=== PATIENT | female | born 1995 | race Caucasian/White ===

== ENCOUNTER 2022-04-12 08:56 | Outpatient (CLI) | payer OTHER, SELFPAY ==
--- NOTE | 2022-04-12 09:15 | CRLHL7_ITS ---
For Patients: As a result of the Cures Act, medical imaging exams and procedure reports are released immediately into your electronic medical record. You may view this report before your referring provider. If you have questions, please contact your health care provider. INDICATION: Dating/viability. TECHNIQUE: Ultrasound pelvis transvaginal for better assessment or to better visualize the endometrium. Real-time sonographic images with spectral and color Doppler imaging of the ovaries were obtained. COMPARISON: None. FINDINGS: Baby A [place] rump length measures 2.6 cm corresponding to 9 weeks 3 days. heart rate is 155 beats per minute. Gestational sac and yolk sac are within normal limits. Baby B [place]-rump length measures 2.6 cm corresponding to 9 weeks 3 days. heart rate is 159 beats per minute. Gestational sac and yolk sac within normal limits. Right ovary measures 3.3 x 3.1 x 1.7 cm and left ovary measures 3.7 x 2.6 x 2.0 cm. No ovarian or adnexal masses. Cul-de-sac: No significant free fluid. IMPRESSION: Monochorionic diamniotic twin gestation with estimated gestational age of 9 weeks 3 days. Estimated date of delivery 11/12/2022. Dictated by Farhat De Guzman MD @ 04/12/2022 10:50:39 AM (Electronically Signed)
== END 2022-04-12 08:57 | disposition home or self-care (01) ==
LOC: US 08:57
PROVIDERS: Visit Provider Advanced Practice Midwife
DX: Z34.91 Encounter for supervision of normal pregnancy, unspecified, first trimester; O30.031 Twin pregnancy, monochorionic/diamniotic, first trimester; Z3A.09 9 weeks gestation of pregnancy
CPT/HCPCS: 76817

== ENCOUNTER 2022-04-12 10:33 | Outpatient (CLI) | payer OTHER, SELFPAY ==
[2022-04-12 13:07] LABS: Hepatitis B Surface Antigen* Negative (Negative)
[2022-04-12 13:18] LABS: HIV 1/2/P24 Combo Screen* Negative (Negative)
[2022-04-12 13:24] LABS: Hepatitis C Virus Antibody* Negative (Negative)
[2022-04-13 18:31] LABS: Rubella Antibody IgG 40.3 IU/mL
[2022-04-13 19:18] LABS: Rapid Plasma Reagin (RPR) Non Reactive (Non Reactive)
== END 2022-04-12 10:34 | disposition home or self-care (01) ==
PROVIDERS: Visit Provider Advanced Practice Midwife
DX: Z34.91 Encounter for supervision of normal pregnancy, unspecified, first trimester (principal); Z3A.10 10 weeks gestation of pregnancy
CPT/HCPCS: 86592; 86703; 86762; 86787; 86803; 86850; 86900; 86901; 87086; 87340; 87491; 87591